=== PATIENT | male | born 1955 | race Caucasian/White ===

== ENCOUNTER 2018-04-16 22:20 | Observation (INO) ==
[2018-04-16 22:50] LABS: Bilirubin,Urine Small (Negative); Blood,Urine Trace (Negative); Clarity,Urine Turbid (Clear); Color,Urine Dark Yellow (Yellow); Glucose,Urine (UA) Normal (Normal); Ketones,Urine Negative (Negative); Leukocyte Esterase,Urine Negative (Negative); Nitrite,Urine Negative (Negative); PH,Urine 5.5 pH Units (5.0-8.0); Protein,Urine 100 mg/dL (Neg-Trace); Specific Gravity,Urine 1.026 (1.010-1.025); Urobilinogen,Urine Normal (Normal)
[2018-04-16 22:53] LABS: Hyaline Casts,Urine Few per lpf (None-Few); RBC,Urine 0-3 per hpf (0-3); Squamous Epithelial Cell,Urine Many per lpf (None-Few); WBC,Urine 15-30 per hpf (0-3)
[2018-04-16 22:59] LABS: Basophils % 0.2 %; Eosinophils % 0.2 %; Hematocrit 37.2 % (37.5-50.1); Immature Granulocytes % 0.2 % (0-4); Lymphocytes # 0.6 K/mcL (0.6-4.6); Lymphocytes % 11.1 %; Mean Corpuscular HGB Conc 34.9 g/dL (31.6-35.5); Mean Corpuscular Hemoglobin 31.6 pg (28.0-33.3); Mean Corpuscular Volume 90.5 fL (83.0-100.0); Mean Platelet Volume 10.2 fL (9.4-12.4); Monocytes # 0.4 K/mcL (0.0-1.3); Monocytes % 7.3 %; Neutrophils # 4.1 K/mcL (1.6-8.9); Platelet Count 132 K/mcL (140-400); Red Blood Count 4.11 M/mcL (4.19-5.50)
[2018-04-16 23:03] LABS: Bacteria,Urine Moderate per hpf (None-Few); Mucus,Urine Moderate (Few); Yeast,Urine Few per hpf (None Seen)
[2018-04-16 23:16] LABS: Albumin 3.8 g/dL (3.5-5.7); Albumin/Globulin Ratio 1.2 (1.1-2.2); Bilirubin,Direct 0.2 mg/dL (0.0-0.2); Bilirubin,Indirect 0.4 mg/dL (0.0-1.2); Bilirubin,Total 0.6 mg/dL (0.3-1.0); Calcium 8.6 mg/dL (8.6-10.3); Globulin 3.1 g/dL (2.4-3.5); Total Protein 6.9 g/dL (6.4-8.9)
[2018-04-16] MEDS ORDERED: 0.9 % Sodium Chloride 1,000 ML IVC ONE (23:34)
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
[2018-04-17] MEDS ORDERED: cefTRIAXone 1,000 MG in Water for inj. (sterile) 20 ML 10 ML IVP ONE (01:53)
[2018-04-17] MEDS ORDERED: 0.9 % Sodium Chloride 1,000 ML IVC ONE (02:05)
[2018-04-17 02:17] LABS: Hepatitis A Antibody IgM Nonreactive (Nonreactive); Hepatitis B Core IgM Nonreactive (Nonreactive); Hepatitis B Surface Antigen Nonreactive (Nonreactive)
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
[2018-04-17] MEDS ORDERED: Naloxone 0.4 MG/ML INJ IVP PRN (03:12)
[2018-04-17] MEDS ORDERED: 0.9 % Sodium Chloride 1,000 ML IVC SCH (03:15)
[2018-04-17] MEDS ORDERED: Acetaminophen 325 MG TABLET PO PRN (03:16)
[2018-04-17] MEDS ORDERED: Ondansetron 4 MG/2 ML VIAL IVP PRN (03:16)
[2018-04-17 03:31] LABS: Magnesium 2.2 mg/dL (1.6-2.6)
[2018-04-17 05:44] LABS: Albumin 3.6 g/dL (3.5-5.7); Albumin/Globulin Ratio 1.2 (1.1-2.2); Bilirubin,Total 0.6 mg/dL (0.3-1.0); Potassium 3.1 mEq/L (3.5-5.1); Total Protein 6.6 g/dL (6.4-8.9)
[2018-04-17] MEDS: 0.9 % Sodium Chloride 1,000 ML IVC SCH ×2 (06:30→21:03)
[2018-04-17] MEDS ORDERED: Acetaminophen 325 MG TABLET PO ONE (06:54)
[2018-04-17] MEDS: Pantoprazole 40 MG VIAL IVP SCH (10:01)
[2018-04-17] MEDS ORDERED: *HR* Promethazine 25 MG/ML VIAL IVP ONE (13:46)
--- NOTE | 2018-04-17 17:10 | Internal Med Progress Note ---
<Ellen Gandhi - Last Filed: 04/17/18 17:18> Date of Encounter: 04/17/18 Time of Encounter: 05:05 - Assessment and plan (1) AMIRA (acute kidney injury) Current Visit: Yes Status: Acute Assessment and plan: Suspected secondary to dehydration. Renally dosing his antibiotics. He was given 2L IVF bolus in ED and is on a maintenance IV hydration. Avoid nephrotoxins. Holding ACEI. Continue monitoring (2) Gastroenteritis Current Visit: Yes Status: Acute Assessment and plan: Ongoing nausea with a few episodes of loose bowel movement. Still has low grade fever. Avoiding acetaminophen due to elevated LFTs. Last bowel movement was 2 days ago. He does have Elevated LFTs, which could be attributed to use of acetaminophen the past 5 days. Negative hepatitis serology, negative lipase and negative alcohol levels. If LFTs are high again, consider ultrasound of the liver. Continue Zofran as needed and PPI ordered. Started cipro and metronidazole. CT of the abdomen shows: No acute intra-abdominal process seen. Mild fatty infiltration liver. Mild hiatal hernia. Status post previous bowel surgery with ventral hernia without bowel obstruction. Nonspecific stranding in the perinephric fat bilaterally. Contracted gallbladder with small calcified gallstone. GI panel stool cultures are still pending. (3) Hyponatremia Current Visit: Yes Status: Acute Assessment and plan: Possibly hypovolemic hyponatremia due to decreased oral intake for the past a few days. He received maintenance IV fluids and now is urged to intake PO. Continue monitoring (4) Hypokalemia Current Visit: Yes Status: Acute Assessment and plan: Potassium was given in the ED and Magnesium level is within normal limits. Could be attributed to decreased dietary intake and loss of potassium due to episodes of diarrhea. Continue monitoring (5) HTN (hypertension) Current Visit: Yes Status: Chronic Assessment and plan: Hold ACEI in the setting of AMIRA and due to hypotension. Qualifiers: Hypertension type: essential hypertension Qualified Code(s): I10 - Essential (primary) hypertension (6) DVT prophylaxis Current Visit: Yes Status: Acute Assessment and plan: EPCDs (7) Elevated LFTs Current Visit: Yes Status: Acute Assessment and plan: Possibly due to acetaminophen intake vs. cholestatic. His decreased in appetite with nausea may suggest a cholestatic cause. If LFTs are still elevated and he continues to have nausea, consider gallbladder ultrasound. His repeat AST and ALT improved. AST improved from 158 to 133, ALT improved from 205 to 187 and Alkaline phos improved from 204 to 191. Will repeat CMP. - Time Spent With Patient Total time spent is greater than 50% in coordination of care (as documented) at patient's floor/unit and/or counseling patient: - Subjective Interval history: Mr. Velazquez was seen at bedside this morning. He presented to the ED per his physician's request due to weakness, fever and associated episodes of diarrhea. He had myalgia onset Friday with subjective fever. On Friday he felt better but Friday and until now his myalgia returned with episodes of fever and two episodes of loose nonbloody bowel movements. He recently returned from a trip at [facility] and had some barbequed pork as well as hamburger. He also started taking acetaminophen the past 5 days for his subjective fevers. He denies photophobia, lower extremity weakness, rash, chest pain or shortness of breath. - Constitutional Vitals: Temp Pulse Resp BP Pulse Ox 99.3 F 72 18 99/66 94 04/17/18 15:40 04/17/18 15:40 04/17/18 15:40 04/17/18 15:40 04/17/18 15:40 General appearance: Present: cooperative, mild distress (appears weak), A&O X 3 , pleasant, answers questions appropriately - Head Head exam: Present: atraumatic, normocephalic - Eye Eye exam: Present: EOMI. Absent: sclera anicteric - ENT ENT exam: Present: mucous membranes moist - Neck Neck exam general surgery: Present: trachea midline. Absent: nuchal rigidity - Respiratory Respiratory exam: Present: CTAB. Absent: rales, wheezes - Cardiovascular Cardiovascular exam: Present: +S1, +S2. Absent: JVD - GI/Abdominal GI/Abdominal exam: Present: normal bowel sounds, soft. Absent: distended, guarding, mass - Extremities Exam Extremities exam: Present: warm. Absent: pedal edema, tenderness - Skin Skin exam: Present: dry, warm. Absent: erythema, rash Internal Medicine: Result - Labs CBC & Chem 7: 04/16/18 22:38 04/17/18 05:12 Labs: BMP 04/17/18 05:12 Sodium 131 L Potassium 3.1 L Chloride 97 L Carbon Dioxide 22 L BUN 38 H Creatinine 2.21 H Glucose 136 H Calcium 8.0 L Liver Function 04/17/18 Range/Units 05:12 Total Bilirubin 0.6 (0.3-1.0) mg/dL AST 133 H (13-39) Units/L ALT 187 H (7-52) Units/L Alkaline Phosphatase 191 H (34-104) Units/L Albumin 3.6 (3.5-5.7) g/dL - Impressions Impressions Chest X-Ray 04/17/18 04:44 IMPRESSION: No acute abnormality. D/ / Jasmeet Prakash MD / Jasmeet Prakash MD Interpreting Provider: Jasmeet Prakash MD Abdomen CT 04/17/18 11:53 IMPRESSION: No acute intra-abdominal process seen. Mild fatty infiltration liver. Mild hiatal hernia. Status post previous bowel surgery with ventral hernia without bowel obstruction. Nonspecific stranding in the perinephric fat bilaterally. Contracted gallbladder with small calcified gallstone. D/ / 04/17/2018 13:18:37 Aaron Banegas MD / jeannette Interpreting Provider: Aaron Banegas MD Consult Discharge Plan - Plan Referrals: Hermilo Taylor DO [Primary Care Provider] - <AlyseoliverjudithConchita Mauromaribel - Last Filed: 04/17/18 18:58> Date of Encounter: 04/17/18 - Assessment and plan (1) Gastroenteritis Current Visit: Yes Status: Acute (2) Hyponatremia Current Visit: Yes Status: Acute (3) Hypokalemia Current Visit: Yes Status: Acute (4) DVT prophylaxis Current Visit: Yes Status: Acute (5) AMIRA (acute kidney injury) Current Visit: Yes Status: Acute (6) HTN (hypertension) Current Visit: Yes Status: Chronic Qualifiers: Hypertension type: essential hypertension Qualified Code(s): I10 - Essential (primary) hypertension (7) Elevated LFTs Current Visit: Yes Status: Acute - Time Spent With Patient Total time spent is greater than 50% in coordination of care (as documented) at patient's floor/unit and/or counseling patient: - Constitutional Vitals: Temp Pulse Resp BP Pulse Ox 99.3 F 72 18 99/66 94 04/17/18 15:40 04/17/18 15:40 04/17/18 15:40 04/17/18 15:40 04/17/18 15:40 Internal Medicine: Result - Labs CBC & Chem 7: 04/16/18 22:38 04/17/18 05:12 Labs: BMP 04/17/18 05:12 Sodium 131 L Potassium 3.1 L Chloride 97 L Carbon Dioxide 22 L BUN 38 H Creatinine 2.21 H Glucose 136 H Calcium 8.0 L Liver Function 04/17/18 Range/Units 05:12 Total Bilirubin 0.6 (0.3-1.0) mg/dL AST 133 H (13-39) Units/L ALT 187 H (7-52) Units/L Alkaline Phosphatase 191 H (34-104) Units/L Albumin 3.6 (3.5-5.7) g/dL - Impressions Impressions Chest X-Ray 04/17/18 04:44 IMPRESSION: No acute abnormality. D/ / Jasmeet Prakash MD / Jasmeet Prakash MD Interpreting Provider: Jasmeet Prakash MD Abdomen CT 04/17/18 11:53 IMPRESSION: No acute intra-abdominal process seen. Mild fatty infiltration liver. Mild hiatal hernia. Status post previous bowel surgery with ventral hernia without bowel obstruction. Nonspecific stranding in the perinephric fat bilaterally. Contracted gallbladder with small calcified gallstone. D/ / 04/17/2018 13:18:37 Aaron Banegas MD / [facility] Interpreting Provider: Aaron Banegas MD - Attending Attestation I examined this patient and my medical decision-making was reviewed with the Resident Physician. I agree with the documented findings, disposition and treatment plan as described except to the extent set forth below.
[2018-04-17] MEDS ORDERED: cefTRIAXone 1,000 MG in Water for inj. (sterile) 20 ML 10 ML IVP SCH (18:00)
[2018-04-17] MEDS: metroNIDAZOLE 500 MG TABLET PO SCH (21:03)
[2018-04-18 05:27] LABS: Basophils % 0.6 %; Eosinophils # 0.1 K/mcL (0.0-0.6); Hematocrit 29.7 % (37.5-50.1); Immature Granulocytes % 0.6 % (0-4); Lymphocytes # 0.9 K/mcL (0.6-4.6); Lymphocytes % 25.1 %; Mean Corpuscular HGB Conc 33.7 g/dL (31.6-35.5); Mean Corpuscular Hemoglobin 30.5 pg (28.0-33.3); Mean Corpuscular Volume 90.5 fL (83.0-100.0); Mean Platelet Volume 10.9 fL (9.4-12.4); Monocytes # 0.4 K/mcL (0.0-1.3); Monocytes % 11.6 %; Neutrophils # 2.1 K/mcL (1.6-8.9); Platelet Count 128 K/mcL (140-400); Red Blood Count 3.28 M/mcL (4.19-5.50); Red Cell Distribution Width 13.4 % (11.5-14.5); Segmented Neutrophils % 60.1 %
[2018-04-18 05:43] LABS: Acetaminophen < 10 mcg/mL (10-20); Alanine Aminotransferase 108 Units/L (7-52); Albumin 2.8 g/dL (3.5-5.7); Albumin/Globulin Ratio 1.1 (1.1-2.2); Alkaline Phosphatase 133 Units/L (34-104); Aspartate Amino Transferase 59 Units/L (13-39); BUN/Creatinine Ratio 20 (6-26); Bilirubin,Total 0.5 mg/dL (0.3-1.0); Blood Urea Nitrogen 28 mg/dL (8-23); Calcium 8.1 mg/dL (8.6-10.3); Carbon Dioxide 23 mEq/L (23-29); Chloride 105 mEq/L (98-107); Globulin 2.5 g/dL (2.4-3.5); Glucose 115 mg/dL (70-105); Osmolality,Calculated 284 (280-300); Potassium 3.4 mEq/L (3.5-5.1); Sodium 134 mEq/L (136-145); Total Protein 5.3 g/dL (6.4-8.9); eGFR For African Americans > 60 (> 60); eGFR For Non-African Americans 53 (> 60)
[2018-04-18 10:42] VITALS: BP 100/64
[2018-04-18] MEDS: Pantoprazole 40 MG VIAL IVP SCH (10:42)
[2018-04-18] MEDS: metroNIDAZOLE 500 MG TABLET PO SCH (10:43)
[2018-04-18] MEDS: 0.9 % Sodium Chloride 1,000 ML IVC SCH (10:53)
--- NOTE | 2018-04-18 12:37 | Discharge Summary ---
- NOTES TO OUTPATIENT PROVIDER Notes to Outpatient Provider: Repeat BMP in 3-5 days. Orders not resulted at time of discharge: Pending orders 04/17/18 05:12 Culture,Blood [BC] Stat 04/17/18 05:25 Culture,Urine [RM] Stat Date of Encounter: 04/18/18 Time of Encounter: 12:35 - Discharge Diagnosis (1) AMIRA (acute kidney injury) Priority: Primary Status: Acute Assessment and Plan: Secondary to dehydration (2) Gastroenteritis Priority: Secondary Status: Acute (3) Hyponatremia Priority: Secondary Status: Acute (4) Hypokalemia Priority: Secondary Status: Acute (5) DVT prophylaxis Priority: Secondary Status: Acute (6) HTN (hypertension) Priority: Secondary Status: Chronic Qualifiers: Hypertension type: essential hypertension Qualified Code(s): I10 - Essential (primary) hypertension (7) Elevated LFTs Priority: Secondary Status: Acute Hospital course: Mr. Velazquez is a 62 year old male with a PMH of HTN who was sent to the ED by his PCPdue to dehydration. Patient reports weakness, subjective fever, ongoing nausea, decreased appetite, and cramping abdominal pain for the past 7 days. He also reports decreased fluid intake for the past 2 days since recent evaluation at urgent care. He reports diarrhea has now resolved since he hasn't been eating. Patient reports one episode of dysuria but hasn't been urinating as frequently as usual. He reports recent travel to [facility] and swimming in a public pool. He admits to drinking about 15 beers weekly usually casually with friends, but denies history of alcohol withdrawal seizures. Patient is able to keep fluids down at this time and reports taking Tylenol as needed for fever. Patient denies chills, vomiting, bug bites, or exposure to sick contacts. In the ED labs were significant for AMIRA with creatinine elevated at 2.3 and sodium of 128. He was given IV fluids and creatinine did show significant improvement. Patient did still have complaints of severe n/v, he was started on Cipro/Flagyl. CT abdomen pelvis showed no acute process. Showed mild fatty liver, and contracted gallbladder with small calcified stones. LFTs were elevated, AST initially 158, ALT 205 and AST 204. He is known to have alcohol consumption and a CT of abdomen/pelvis showed fatty liver. His LFTs did trend down without any intervention. Patient appetite and renal function improved. He was discharged home in stable condition to complete course of Cipro/Flagyl. - Time Spent with Patient Total time spent providing and/or coordinating discharge services: - Discharge Medications Prescriptions: metroNIDAZOLE [Flagyl] 500 mg PO TID #21 tablet Home Medications: Aspirin Enteric Coated [Aspirin EC] 81 mg PO DAILY 04/17/18 [History] Lisinopril-HCTZ 20-12.5 [Prinzide 20-12.5] 1 tab PO DAILY 04/17/18 [History] Ciprofloxacin [Cipro] 500 mg PO BID #14 tablet 04/18/18 [Rx] metroNIDAZOLE [Flagyl] 500 mg PO TID #21 tablet 04/18/18 [Rx] Allergies/Adverse Reactions: 3 Allergy/AdvReac Type Severity Reaction Status Date / Time No Known Allergies Allergy Verified 04/17/18 10:07 Date of admission: 04/17/18 02:07 Primary care physician: Hermilo Taylor Discharging clinician: Bhargav Mendez - Constitutional Vitals: Temp Pulse Resp BP Pulse Ox 97.8 F 59 18 100/64 96 04/18/18 10:38 04/18/18 10:38 04/18/18 10:38 04/18/18 10:38 04/18/18 10:38 General appearance: Present: cooperative, mild distress (appears weak), A&O X 3 , pleasant, answers questions appropriately - Head Head exam: Present: atraumatic, normocephalic - Eye Eye exam: Present: PERRL, conjuntiva pink, sclera anicteric Pupils: Present: PERRL - Neck Neck exam general surgery: Present: supple, trachea midline. Absent: lymphadenopathy - Respiratory Respiratory exam: Present: CTAB. Absent: accessory muscle use, rales, rhonchi, wheezes - Cardiovascular Cardiovascular exam: Present: RRR, +S1, +S2. Absent: diastolic murmur, gallop, rubs, systolic murmur - GI/Abdominal GI/Abdominal exam: Present: normal bowel sounds, soft, no peritoneal signs. Absent: distended, tenderness - Extremities Exam Extremities exam: Present: warm, radial pulses palpable and symmetrical. Absent : calf tenderness, cyanotic, pedal edema - Neurological Exam Neurological exam: Present: CN II-XII intact, oriented X3, no focal deficits. Absent: pronater drift, facial droop, speech deficit - Skin Skin exam: Present: dry, intact - Patient Status Disposition: Home, Self-Care Condition: Good Functional capacity at discharge: independent ambulation Overall status at discharge: patient is back to baseline - Discharge Instructions Follow Up With: Hermilo Taylor DO [Primary Care Provider] - - Diet and Activity Activity: increase activity as tolerated Diet: advance to your usual diet - VTE Documentation of Mechanical Device: Intermittent pneumatic compression device
[2018-04-20 12:38] LABS: Hepatitis C Virus Antibody Nonreactive (Nonreactive)
== END 2018-04-18 18:00 | disposition home or self-care (01) ==
LOC: 3ANU 22:20 → EMEROO 22:20 → 3ANU 04-17 02:52
PROVIDERS: ADMIT Internal Medicine; ATTEND Internal Medicine

== ENCOUNTER 2018-11-15 08:48 | Inpatient (IN) ==
[2018-11-15] MEDS ORDERED: Aspirin 81 MG TAB.CHEW ONE (09:13)
[2018-11-15] MEDS ORDERED: *HR* Heparin 5,000 UNIT/ML VIAL ONE (09:13)
[2018-11-15] MEDS ORDERED: 0.9 % Sodium Chloride 1,000 ML ONE ×3 (09:13→09:41)
[2018-11-15] MEDS ORDERED: *HR* Ticagrelor 90 MG TABLET ONE (09:13)
[2018-11-15] MEDS ORDERED: Aspirin 81 MG TAB.CHEW PO ONE (09:17)
[2018-11-15] MEDS ORDERED: *HR* Ticagrelor 90 MG TABLET PO ONE (09:17)
[2018-11-15] MEDS ORDERED: *HR* Heparin 5,000 UNIT/ML VIAL IVP PRN ×2 (09:18)
[2018-11-15] MEDS ORDERED: *HR* Heparin 5,000 UNIT/ML VIAL IVP ONE (09:18)
--- NOTE | 2018-11-15 09:18 | Emergency Department Note ---
Disposition Clinical Impression: STEMI (ST elevation myocardial infarction) Qualifiers: Involved coronary artery: unspecified coronary artery Qualified Code(s): I21.3 - ST elevation (STEMI) myocardial infarction of unspecified site Disposition: Admitted As Inpatient Condition: Serious Time of Disposition: 10:14 General Adult HPI - General Chief complaint: ED Shortness of Breath/Dyspnea Stated complaint: Lungs Hurt Time Seen by Provider: 11/15/18 08:50 Source: patient, family Limitations: no limitations Nursing Notes Reviewed: Yes Vital Signs Reviewed: Yes - History of Present Illness HPI Narrative: Patient is a 63-year-old male with a history of hypertension who presents to the ED with sensation of his lungs burning. Patient states that last Friday he was working out and had the sensation of his lungs burning continued workup for 20 more minutes would not go away. Afterwards he did a shower and rested he said the sensation white. Had a very similar symptoms on Friday and Friday. However this morning he woke up and stated he had the exact same symptoms. Stated his lungs are burning. Had some radiation to his neck and his jaw. Patient has felt clammy. He has not taken any aspirin or other pain medications. Patient has no personal history of cardiac disease. Does have family history on his father side. Patient denies significant shortness of breath. Denies cough, fever, abdominal pain, nausea, vomiting, diarrhea, swe lling, muscle weakness, tenderness, YU, vision changes. Pain Scale: 8 - Related Data Home Medications Medication Instructions Recorded Confirmed Aspirin Enteric Coated [Aspirin EC] 81 mg PO DAILY 04/17/18 04/17/18 Lisinopril-HCTZ 20-12.5 [Prinzide 1 tab PO DAILY 04/17/18 04/17/18 20-12.5] Previous Rx's Medication Instructions Recorded Ibuprofen 400 mg PO Q6-8H PRN #20 tablet 11/02/18 Loratadine [Claritin] 10 mg PO DAILY #14 tablet 11/02/18 Allergies Allergy/AdvReac Type Severity Reaction Status Date / Time No Known Allergies Allergy Verified 11/02/18 09:03 Constitutional: Reports: as per HPI Eyes: Reports: as per HPI ENT ED: Denies: congestion Cardiovascular: Reports: as per HPI Respiratory: Reports: as per HPI Gastrointestinal: Reports: as per HPI Genitourinary: Reports: as per HPI Integumentary: Denies: rash Neurological: Reports: as per HPI Allergic/Immunologic: Denies: itchy eyes Past Medical History - Past Medical History Medical history: Reports: GERD, hypertension, other Surgical history: Reports: colostomy Psychiatric history: Reports: no psych history - Social History Smoking Status: Never smoker Smokeless Tobacco Status: No Alcohol use: Reports: occasionally Drug use: Reports: none Physical Exam Irregularities pleasant conversation. He was slightly diaphoretic. - General Limitations: no limitations General appearance: alert, in no apparent distress - Head Head exam: atraumatic, normocephalic - Eye Eye exam: Present: normal appearance, PERRL, EOMI - Chest Chest inspection: Present: normal inspection, symmetric chest wall rise - Respiratory Respiratory exam: Present: normal lung sounds bilaterally - Cardiovascular Cardiovascular exam: Present: regular rate, normal rhythm, normal heart sounds - Abdominal Exam Abdominal exam: Present: soft, Non-Tender. Absent: tenderness, distention, guarding, rebound, rigidity - Extremities Exam Extremities exam: Present: normal inspection, full ROM. Absent: tenderness, pedal edema - Neurological Exam Neurological exam: Present: alert, oriented X3 - Psychiatric Psychiatric exam: Present: normal affect, normal mood - Skin Skin exam: Present: warm, dry, intact, normal color Course Vital Signs Temperature 97.7 F 11/15/18 08:50 Pulse Rate 65 11/15/18 08:50 Respiratory Rate 18 11/15/18 08:50 Blood Pressure 180/111 11/15/18 08:50 O2 Sat by Pulse Oximetry 96 11/15/18 08:50 Temperature 97.7 F 11/15/18 08:50 Pulse Rate 69 11/15/18 09:50 Respiratory Rate 14 11/15/18 09:50 Blood Pressure 147/94 11/15/18 09:50 O2 Sat by Pulse Oximetry 100 11/15/18 09:50 Oxygen Delivery Oxygen Delivery Nasal Cannula Medical Decision Making - [facility] Narrative Medical decision making narrative: ST segment elevations in 2,3. aVF with depressions in aVL. STEMI alert was called. Aspirin, nitroglycerin, fluids were given. Inferior SD. The patient was hypertensive. Nitroglycerin was given, hypertensive. fluid bolus was given as well to maintain preload. Dr. odell grab operator was called. will see patient. Likely take patient to catheter lab. Labs, heparin. troponin 0.39 09:58 transfered down to quality lab technician. Will be sent to ICU after procedue. - Lab Data Result diagrams: 11/15/18 09:25 11/15/18 09:25 Lab Results 11/15/18 11/15/18 11/15/18 Range/Units 09:25 09:25 09:25 WBC 4.6 (4.3-11.1) K/mcL RBC 4.30 (4.19-5.50) M/mcL Hgb 13.0 (12.9-16.9) g/dL Hct 39.4 (37.5-50.1) % MCV 91.6 (83.0-100.0) fL MCH 30.2 (28.0-33.3) pg MCHC 33.0 (31.6-35.5) g/dL RDW 13.3 (11.5-14.5) % Plt Count 191 (140-400) K/mcL MPV 10.1 (9.4-12.4) fL Immature Gran % 0.2 (0-4) % Seg Neutrophils % 46.7 % Lymphocytes % 37.6 % Monocytes % 8.5 % Eosinophils % 6.3 % Basophils % 0.7 % Neutrophils # 2.2 (1.6-8.9) K/mcL Lymphocytes # 1.7 (0.6-4.6) K/mcL Monocytes # 0.4 (0.0-1.3) K/mcL Eosinophils # 0.3 (0.0-0.6) K/mcL Basophils # 0.0 (0.0-0.2) K/mcL PT 11.0 (9.4-12.1) Seconds INR 1.0 Heparin Anti-Xa, Unfract 0.00 L (0.30-0.70) IU/mL Sodium 137 (136-145) mEq/L Potassium 3.5 (3.5-5.1) mEq/L Chloride 105 (98-107) mEq/L Carbon Dioxide 23 (23-29) mEq/L BUN 19 (8-23) mg/dL Creatinine 0.87 (0.70-1.30) mg/dL Est GFR ( Amer) > 60 (> 60) Est GFR (Non-Af Amer) > 60 (> 60) BUN/Creatinine Ratio 22 (6-26) Glucose 151 H (70-105) mg/dL Calculated Osmolality 289 (280-300) Calcium 9.8 (8.6-10.3) mg/dL Magnesium 2.0 (1.6-2.6) mg/dL Troponin I 0.39 H* (< 0.04) ng/mL
--- NOTE | 2018-11-15 09:19 | Emergency Department Note ---
Disposition Clinical Impression: STEMI (ST elevation myocardial infarction) Disposition: Admitted As Inpatient Referrals: Hermilo Taylor DO [Primary Care Provider] - General Adult HPI - General Chief complaint: ED Shortness of Breath/Dyspnea Stated complaint: Lungs Hurt Time Seen by Provider: 11/15/18 08:50 Source: patient, family Limitations: no limitations - History of Present Illness Pain Scale: 8 - Related Data Home Medications Medication Instructions Recorded Confirmed Aspirin Enteric Coated [Aspirin EC] 81 mg PO DAILY 04/17/18 04/17/18 Lisinopril-HCTZ 20-12.5 [Prinzide 1 tab PO DAILY 04/17/18 04/17/18 20-12.5] Previous Rx's Medication Instructions Recorded Ibuprofen 400 mg PO Q6-8H PRN #20 tablet 11/02/18 Loratadine [Claritin] 10 mg PO DAILY #14 tablet 11/02/18 Allergies Allergy/AdvReac Type Severity Reaction Status Date / Time No Known Allergies Allergy Verified 11/02/18 09:03 Past Medical History - Past Medical History Medical history: Reports: GERD, hypertension, other Surgical history: Reports: colostomy Psychiatric history: Reports: no psych history - Social History Smoking Status: Never smoker Smokeless Tobacco Status: No Alcohol use: Reports: occasionally Drug use: Reports: none Physical Exam - General Limitations: no limitations General appearance: alert, in no apparent distress Course Vital Signs Temperature 97.7 F 11/15/18 08:50 Pulse Rate 65 11/15/18 08:50 Respiratory Rate 18 11/15/18 08:50 Blood Pressure 180/111 11/15/18 08:50 O2 Sat by Pulse Oximetry 96 11/15/18 08:50 Temperature 97.7 F 11/15/18 08:50 Pulse Rate 65 11/15/18 08:50 Respiratory Rate 18 11/15/18 08:50 Blood Pressure 180/111 11/15/18 08:50 O2 Sat by Pulse Oximetry 98 11/15/18 09:14 Oxygen Delivery Oxygen Delivery Room Air Attestation Statement - Attestation Attestation: I examined this patient and my medical decision-making was reviewed with the Resident Physician. I agree with the documented findings, disposition and treatment plan as described except to the extent set forth below. STEMI ALERT: appaers to be inferior in nature with lateral reciporcations. Patient is 63 year old male presents to the ED with the complaint of sore lungs. Ally states that he was working out on and felt simliarlly but it resovled itself. And this mornign when he wokeup he felt simliar in nature and it is worsening. Ally states that he has hypertension and high cholesterol issues and his father most recently from a triple bypass surgery one week ago. Ally grandfather also from a STEMI. He is otherwise hypertensive now and we will give aspirin and fluids for therapy of the inferior HI.
[2018-11-15] MEDS ORDERED: Nitroglycerin 0.4 MG TAB.SUBL SL ONE (09:21)
[2018-11-15] MEDS ORDERED: Nitroglycerin 0.4 MG TAB.SUBL SL PRN (09:21)
[2018-11-15] MEDS ORDERED: 0.9 % Sodium Chloride 1,000 ML IVC ONE (09:22)
[2018-11-15] MEDS ORDERED: Heparin 25,000 UNIT/500 ML D5W 25,000 UNIT/500 ML BAG IVC SCH (09:30)
[2018-11-15] MEDS ORDERED: ISOVUE-370 200 ML INFUS..BTL ONE (09:40)
[2018-11-15] MEDS ORDERED: Heparin 1,000 UNITS/500 mL 500 ML ONE (09:40)
[2018-11-15] MEDS ORDERED: *HR* Heparin 10,000 UNIT/10 ML VIAL ONE (09:40)
[2018-11-15] MEDS ORDERED: Verapamil 5 MG/2 ML VIAL ONE (09:40)
[2018-11-15] MEDS ORDERED: Nitroglycerin 1,000 MCG/10 ML VIAL IV ONE ×2 (09:41→09:49)
--- NOTE | 2018-11-15 09:43 | Pre-Sedation Evaluation ---
Pre-sedation evaluation - Pre-sedation checklist Date of procedure: 11/15/18 Procedure: [facility] Recent Vitals: Last Vital Signs Temp 97.7 F 11/15/18 08:50 Pulse 51 11/15/18 09:26 Resp 20 11/15/18 09:26 BP 91/69 11/15/18 09:26 Pulse Ox 98 11/15/18 09:26 H&P (including ROS) documented in medical record: Yes Previous reaction to sedatives/anesthetics: No Dietary Status: NPO after Midnight Airway Assessment: Patient can open mouth completely, TMJ function normal Dentition: No loose teeth or bridges ASA Classification *see protocol: CLASS II-Mild systemic disease, [id number] to any of the above to indicate emergent Plan of Care: Pt appropriate candidate for procedure/moderate/conscious sedation, Risks/benefits of procedure/sedation discussed w/ patient/family Cardiac Registry (Cardio Only) - Functional Capacity Functional Capacity: >=4 METS with symptoms - Clincal Frailty Scale Clinical Frailty Scale: Managing Well
--- NOTE | 2018-11-15 09:46 | Cardiology History & Physical ---
Date of Encounter: 11/15/18 Time of Encounter: 09:45 Assessment and Plan (1) STEMI (ST elevation myocardial infarction) Current Visit: Yes Status: Acute The assessment and plan as outlined above was discussed with the patient and/or family members who expressed understanding and agreement. All questions were answered. Qualifiers: Involved coronary artery: unspecified coronary artery Qualified Code(s): I21.3 - ST elevation (STEMI) myocardial infarction of unspecified site History of Present Illness Chief complaint: chest pain HPI: Mr. Velazquez is a 63 year old male with no previous cardiac history, HTN. He presents with chest pain. Past Med Surg Social Fam HX - Past Medical History Medical history: GERD, hypertension, other Additional medical history: gallstones Psychiatric history: no psych history - Past Surgical History Surgical History: colostomy Additional surgical history: abd sx - Social History Smoking Status: Never smoker Smokeless Tobacco Status: No Alcohol use: occasionally Drug use: none - Family History Mother Living Status: Still Living Father Living Status: Still Living Hx Family Cardiac Disorders: Yes Medications and Allergies Aspirin Enteric Coated [Aspirin EC] 81 mg PO DAILY 04/17/18 [History] Lisinopril-HCTZ 20-12.5 [Prinzide 20-12.5] 1 tab PO DAILY 04/17/18 [History] Ibuprofen 400 mg PO Q6-8H PRN #20 tablet 11/02/18 [Rx] Loratadine [Claritin] 10 mg PO DAILY #14 tablet 11/02/18 [Rx] Allergy/AdvReac Type Severity Reaction Status Date / Time No Known Allergies Allergy Verified 11/02/18 09:03 All Systems Review: The remainder of the systems were reviewed and are negative Physical Examination Vital Signs, Last 4 Hours Temp Pulse Resp BP Pulse Ox 11/15/18 09:26 51 20 91/69 98 11/15/18 09:17 98 11/15/18 09:14 98 11/15/18 08:50 97.7 F 65 18 180/111 96
[2018-11-15 09:47] LABS: Basophils % 0.7 %; Eosinophils # 0.3 K/mcL (0.0-0.6); Eosinophils % 6.3 %; Hematocrit 39.4 % (37.5-50.1); Immature Granulocytes % 0.2 % (0-4); Lymphocytes # 1.7 K/mcL (0.6-4.6); Lymphocytes % 37.6 %; Mean Corpuscular Hemoglobin 30.2 pg (28.0-33.3); Mean Corpuscular Volume 91.6 fL (83.0-100.0); Mean Platelet Volume 10.1 fL (9.4-12.4); Monocytes # 0.4 K/mcL (0.0-1.3); Monocytes % 8.5 %; Neutrophils # 2.2 K/mcL (1.6-8.9); Platelet Count 191 K/mcL (140-400); Red Cell Distribution Width 13.3 % (11.5-14.5); Segmented Neutrophils % 46.7 %
[2018-11-15] MEDS ORDERED: Tirofiban 12.5 MG/250ML 12.5 MG/250 ML BAG ONE (10:08)
[2018-11-15] MEDS ORDERED: *HR* Atropine Sulfate 1 MG/10 ML SYRINGE ONE (10:08)
[2018-11-15 10:09] LABS: BUN/Creatinine Ratio 22 (6-26); Blood Urea Nitrogen 19 mg/dL (8-23); Calcium 9.8 mg/dL (8.6-10.3); Carbon Dioxide 23 mEq/L (23-29); Chloride 105 mEq/L (98-107); Glucose 151 mg/dL (70-105); Osmolality,Calculated 289 (280-300); Potassium 3.5 mEq/L (3.5-5.1); Sodium 137 mEq/L (136-145); eGFR For Non-African Americans > 60 (> 60)
[2018-11-15] MEDS ORDERED: Ondansetron 4 MG/2 ML VIAL ONE (10:09)
[2018-11-15] MEDS ORDERED: *HR* FentaNYL (PF) 100 MCG/2 ML VIAL ONE (10:10)
[2018-11-15] MEDS ORDERED: *HR* Midazolam HCl 2 MG/2 ML VIAL ONE (10:10)
[2018-11-15 10:11] LABS: Troponin I 0.39 ng/mL (< 0.04)
[2018-11-15] MEDS ORDERED: *HR* Morphine 2 MG/ML SYRINGE IVP PRN (11:10)
[2018-11-15] MEDS ORDERED: Ondansetron 4 MG/2 ML VIAL IVP PRN (11:10)
[2018-11-15] MEDS ORDERED: Tirofiban 12.5 MG/250ML 12.5 MG/250 ML BAG IVC SCH (11:15)
--- NOTE | 2018-11-15 12:03 | Invasive Diagnostic Lab Proc ---
Name: Chito Velazquez Date of Study: 11/15/2018 Date: 1955 Ht: 68.9in Medical Record#: [id number] Age: 63 Wt: 267.86lb Gender: Male BSA: 2.34 Order #: [id number] BMI: 39.67 Physicians Procedure Physician: Brandon Corcoran [facility], [facility] Referring MD: Referring MD: Staff Name Position Time In Ramon Hobbs RN Monitor 10:05 AM Eli Rosado RN Printing Machine Operator Tape Rules 10:05 AM Gabriela Barrow RT (R) Scrub 10:05 AM Indications Indication STEMI Procedures Performed Procedure L HRT ARTERY/VENTRICLE ANGIO PRQ CARD REVASC MT 1 VSL Pre-Procedure Checklist Informed consent is complete signed and on chart. H&P is on chart. ID band is on and ID verified with patient. Patient NPO for procedure The procedure was described for the patient and questions were answered. Blood Pressure: 150/76 ECG is on chart. Rhythm: NSR Plan of Care Patient will tolerate the procedure without complications. Adequate level of comfort will be maintained. Hemodynamics will remain stable Patient will recover from procedure without complications. Respiratory function will be maintained. Cardiac rhythm will remain stable. Patient temperature will be maintained. Patient and/or family have verbalized understanding of the procedure. Patient Education Chief Complaint/Reason for Test: Cardiac Cath Developmental Category: Adult (18-64 years) Developmentally Appropriate for Age: Yes Learning Barriers: None Education Needs: Procedure Education Method: Verbal Information Taught: Cardiac Cath Educational Evaluation: Able to repeat information Intravenous Access Time IV Size Location DC'd Fluid/Drip Rate Units RN 20g 1 1/4" Patent On Arrival Rt Antecubital Eli Rosado RN 20g 1 1/4" Patent On Arrival Lt Hand 0.9NaCl 50 ml/hr Eli Rosado RN Allergies No Known Allergies Vital Signs Time BP (mmHg) HR (bpm) O2 Sat. RR (bpm) LOC 10:06 AM / % 5 = Fully awake and oriented or at pre-proc level 10:06 AM / % 4 = Oriented but drowsy 10:21 AM / % 4 = Oriented but drowsy 10:36 AM / % 4 = Oriented but drowsy 10:43 AM 143 / 92 69 100 % 0 10:49 AM 146 / 88 71 100 % 0 10:53 AM 143 / 96 77 100 % 10 10:58 AM 133 / 65 61 100 % 6 10:09 AM 162 / 93 56 100 % 15 10:13 AM 164 / 100 66 100 % 9 10:18 AM 142 / 88 61 97 % 19 10:23 AM 150 / 87 69 99 % 19 10:28 AM 148 / 82 69 100 % 14 10:33 AM 135 / 77 62 100 % 10:38 AM 130 / 93 77 100 % 29 11:20 AM 129 / 75 60 99 % 11:30 AM 109 / 93 60 98 % 16 5 = Fully awake and oriented or at pre-proc level 11:48 AM 124 / 82 61 98 % 16 5 = Fully awake and oriented or at pre-proc level Procedural Medications Time Medication Dose Units Method Given By 10:05 AM Oxygen 2 L/min nasal cannula Eli Rosado RN 10:11 AM Versed 2 mg Intravenous Eli Rosado RN 10:11 AM Fentanyl 50 mcg Intravenous Eli Rosado RN 10:11 AM Lidocaine 2% 2 ml Subcutaneous Brandon Corcoran MD, FAC Nitroglycerin 200 mcg Verapamil 2.5 mg Intraarterial Brandon Corcoran MD, FACC 10:16 AM Lidocaine 2% 9 ml Subcutaneous Brandon Corcoran MD, FACC 10:17 AM Zofran 8 mg Intravenous Eli Rosado RN 10:27 AM Aggrastat Bolus: 62 ml Intravenous Eli Rosado RN 10:27 AM Aggrastat 12.5mg/250ml 22.5 ml/hr Intravenous Eli Rosado RN 10:38 AM Benadryl 25 mg Intravenous Eli Rosado RN ASA Classification: Emergent Procedure: ASA score is assumed Landon Score Preprocedure Postprocedure Activity 2- Moves 4 extremities sustained head lift Activity 2- Moves 4 extremities sustained head lift Circulation 2- SBP +/= 20 points of pre-anesthetic level Circulation 2- SBP +/= 20 points of pre-anesthetic level Consciousness 2- Awake and alert oriented x 3 Consciousness 2- Awake and alert oriented x 3 O2 Saturation 2- Able to maintain O2 satruation of 92% on room air O2 Saturation 2- Able to maintain O2 satruation of 92% on room air Respiratory 2- Able to deep breathe and cough well Respiratory 2- Able to deep breathe and cough well Total Score 10 Total Score 10 Contrast Agent: Isovue Diagnostic Contrast: 105 ml Total Contrast: 105 ml Fluoro Dose: 6975 mGy Activated Clotting Time Time Seconds to Clot 10:51 AM 197 Procedure Log Time Note Enter By 10:05 AM 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 10:05 AM Physician arrived 10: [facility] 10:05 AM Meet and greet completed [facility] 10:05 AM Sign in performed according to hospital policy. Informed consent was obtained. [facility] 10:05 AM Procedure start 10:05 [facility] 10:05 AM Hair removed from procedure site in procedure lab using clippers. Right groin/right wrist prepped with Chloraprep by Gabriela Barrow (R), then patient was draped. Skin intact. [facility] 10: AM Time: 10:05 Oxygen on at 2 L/min per nasal cannula by Eli Rosado RN [facility] 10: AM Time: 10:06 Patient comfortable and pain free: Yes [facility] 10: AM Time: 10:06LOC: 5 = Fully awake and oriented or at pre-proc level [facility] 10:06 AM CathStat 10:07 AM Vitals capture started with the following parameters, Patient=Adult, Interval=5 min, Initial Jedceree=713 mmHg, Deflation Rate=5 mmHg, Cuff placed on Right Arm 10:09 AM HR=56 bpm, EDPW=192/93 mmhg, XmP3=262.0 %, Resp=15 B/min, Comment=sb 10:09 AM Time out was performed according to hospital policy. Conscious sedation and anesthesia was achieved (see medication log with in this report above) [facility] 10:10 AM Critical cardiac patient with acute MT was brought emergently to the cardiac director of labor relations for immediate coronary angiography and intervention if clinically indicated. [facility] 10: AM Time: : Versed 2 mg Intravenous Given by [facility]ado [facility] 10:11 AM Time: 10: Fentanyl 50 mcg Intravenous Given by Eli Rosado RN [facility] 10:11 AM Time: 10: 2 ml Lidocaine 2% to right radial Subcutaneous Given by Brandon Corcoran MD, [facility] jcallihan 10:13 AM Access obtained by percutaneous puncture. 6Fr 11cm Terumo Glidesheath sheath placed in right Radial artery. [id number] jcallihan 10:13 AM HR=66 bpm, DPVF=665/100 mmhg, FdZ8=787.0 %, Resp=9 B/min, Comment=nsr 10:14 AM Time: 10:14 Patient given 200 mcg Nitroglycerin, and 2.5 mg Verapamil Intraarterial by Brandon Corcoran MD, [facility]. This is given to reduce risk of vessel spasm and thrombosis. jcallihan 10:15 AM 0.035 145cm VSI Geovany-Torque wire [id number] jcallihan 10:15 AM Inflation device was opened. jcallihan 10:15 AM 6Fr JR 4 Cordis guide catheter was used to cannulate the PCI vessel successfully. reused? No jcallihan 10:15 AM Guide catheter removed intact. jcallihan 10:16 AM Wire removed jcallihan 10:16 AM Access being attempted on right groin, unable to go through irhgt radial artery jcallihan 10:16 AM Time: 10:16 9 ml Lidocaine 2% to right groin Subcutaneous Given by Brandon Corcoran MD, [facility] jcallihan 10:17 AM Time: 10:17 Zofran 8 mg Intravenous Given by Eli Rosado RN jcallihan 10:18 AM Access obtained by percutaneous puncture. 6Fr 10cm Terumo Yale sheath placed in right Femoral artery. [id number] jcallihan 10:18 AM HR=61 bpm, BBFT=793/88 mmhg, SpO2=97.0 %, Resp=19 B/min, Comment=nsr 10:18 AM JR4 guide re-inserted. jcallihan 10:18 AM 0.035 145cm Navilyst 3mmJ wire [id number] jcallihan 10:19 AM Recorded Pressure: Ao, HR=62, Condition=Condition 1 (Aorta) Ao 131/74/99 10:19 AM RCA angiography performed in multiple views. jcallihan 10:20 AM .014 Navesink 190cm guide wire across target lesion- successful. reused? No jcallihan 10:20 AM 2.25 mm x 15 mm Emerge Monorail balloon across target lesion- successful. reused? No jcallihan 10:21 AM Lesion found in Distal RCA. Pre Stenosis: 100 Pre FREDRICK Flow: 0: No Flow/No perfusion jcallihan 10:21 AM Time: 10:06 Patient comfortable and pain free: Yes jcallihan 10:21 AM Right Coronary, Right Posterior Descending Arteries with Right Posterolateral and Acute Marginal branches with 100 % stenosis. If graft is supplying this area, 0 % stenosis jcallihan 10:21 AM Time: 10:06LOC: 4 = Oriented but drowsy j[facility]ihan 10:23 AM Recorded Pressure: Ao, HR=66, Condition=Condition 1 (Aorta) Ao 120/73/95 10:23 AM HR=69 bpm, FCKS=587/87 mmhg, SpO2=99.0 %, Resp=19 B/min, Comment=nsr 10:24 AM Balloon inflated @ 14 jud for 13 seconds jcallihan 10:24 AM Balloon inflated @ 14 jud for 10 seconds jcallihan 10: AM Balloon catheter removed intact. jcallihan 10:26 AM PCI Status Emergency jcallihan 10:27 AM Time: 10:27 Aggrastat Bolus: 62 ml Intravenous Given by Eli Rosado RN Louise pump jcallihan 10:27 AM Time: 10:27 Aggrastat 12.5mg/250ml 22.5 ml/hr Intravenous Given by Eli Rosado RN Louise pump jcallihan 10:28 AM HR=69 bpm, XNCG=741/82 mmhg, OkW9=993.0 %, Resp=14 B/min, Comment=nsr 10:29 AM 3.5mm x 20mm Synergy drug-eluting stent across target lesion- successful Lot #[id number] jcallihan 10:31 AM .014 PT Graphix 182cm guide wire across target lesion- successful. reused? No jcallihan 10:33 AM HR=62 bpm, YKXJ=297/77 mmhg, EqC9=912.0 %, Comment=nsr 10:34 AM Stent deployed @ 16 jud for 20 seconds jcallihan 10:34 AM Stent delivery system removed intact. jcallihan 10:36 AM Time: 10:21LOC: 4 = Oriented but drowsy jcallihan 10:36 AM Time: 10:21 Patient comfortable and pain free: Yes jcallihan 10:37 AM 4.5 mm x 8mm NC Trek Rx balloon across target lesion- successful. reused? No jcallihan 10:37 AM Recorded Pressure: Ao, HR=73, Condition=Condition 1 (Aorta) Ao 120/80/102 10:38 AM HR=77 bpm, QHJM=498/93 mmhg, HjB1=678.0 %, Resp=29 B/min, Comment=nsr 10:39 AM Time: 10:38 Benadryl 25 mg Intravenous Given by Eli Rosado RN [facility] 10:40 AM .014 Prowater 180cm guide wire across target lesion- successful. reused? No (second wire) jcallihan 10:42 AM Balloon inflated @ 12 jud for 10 seconds jcallihan 10:43 AM Balloon inflated @ 10 jud for 5 seconds jcallihan 10:43 AM HR=69 bpm, RKAG=688/92 mmhg, VbZ9=856.0 %, Resp=0 B/min, Comment=nsr 10:43 AM Balloon inflated @ 12 jud for 6 seconds jcallan 10:44 AM Balloon catheter removed intact. jcallihan 10:44 AM Lesion found in Proximal RCA. Pre Stenosis: 40 Pre FREDRICK Flow: jcallihan 10:44 AM Lesion found in Mid RCA. Pre Stenosis: 50 Pre FREDRICK Flow: jcallihan 10:45 AM Guide wire removed intact x 2 jcallihan 10:46 AM 5Fr Pigtail catheter inserted over the wire [facility] jcallihan 10:46 AM Catheter crossed the aortic valve and was selectively placed in the left ventricle. Pressures recorded on pullback for left heart catheterization. jcallihan 10:47 AM Bolus angiogram of left Ventricle complete: 10 ml/sec for a total of 30 mls jcallihan 10:47 AM Recorded Pressure: LV, HR=73, Condition=Condition 1 (Left Ventricle) LV 132/7/14 10:48 AM Recorded Pressure: LV, Ao, HR=76, Condition=Condition 1 (Left Ventricle) LV 112/0/13, (Aorta) Ao 137/72/99 10:48 AM Catheter removed jcallihan 10:48 AM 5Fr FL 4 catheter inserted over the wire DNC jcallihan 10:49 AM HR=71 bpm, SDLZ=308/88 mmhg, VcI6=000.0 %, Resp=0 B/min, Comment=nsr 10:50 AM Recorded Pressure: Ao, HR=74, Condition=Condition 1 (Aorta) Ao 128/73/97 10:50 AM LCA angiography performed in multiple views. jcallihan 10:51 AM At 10:51 the ACT was 197 seconds. jcallihan 10:51 AM Time: 10:36 Patient comfortable and pain free: Yes jcallihan 10:51 AM Time: 10:36LOC: 4 = Oriented but drowsy jcallihan 10:52 AM right groin shot obtained. jcallihan 10:53 AM Catheter removed jcallihan 10:53 AM Wire removed jcallihan 10:53 AM HR=77 bpm, BOVT=371/96 mmhg, UsW1=542.0 %, Resp=10 B/min, Comment=nsr 10:54 AM Procedure completed at 10:54 11/15/2018 jcallihan 10:55 AM Did you address FREDRICK flow and Dominance? Yes jcallihan 10:55 AM Coronary Dominance: right jcallihan 10:55 AM Sign out completed: Radiation Dose 910.15 mGy, 6974.88 cGy/cm2 Fluoro Time: 12.2 Isovue 370 - 200ml contrast 105 ml given by Brandon Corcoran MD, [facility]. Complications: None. The patient was discharged out of the director of labor relations in stable condition. Cardiac Rehab Consult needed: YesConfirmed administered medications: Yes jcallihan 10:55 AM Isovue 370 - 200ml,1 Bottle(s) used. jcallihan 10:55 AM Sheath left in place to be pulled on floor/holding areaV+Pad jcallihan 10:56 AM Estimated Blood Loss: minimal jcallihan 10:56 AM Post ECG NSR jcallihan 10:56 AM Post Blood Pressure 143/96 jcallihan 10:56 AM 10:56 Post Pulses Bilateral DP & PT 2+ jcallihan 10:56 AM 10:56 Post Pulses Bilateral radial 2+ jcallihan 10:57 AM Information taught Cardiac Cath and PCI [facility] 10:58 AM HR=61 bpm, YRJP=714/65 mmhg, MeR1=172.0 %, Resp=6 B/min, Comment=nsr 11:05 AM Education needs Procedure, Plan of Care, and Responsibilities of Patient in Care [facility] 11:05 AM Learning barriers :None [facility] 11:07 AM Education Methods Verbal [facility] 11:07 AM Education evaluation Able to repeat information [facility] 11:09 AM Site status No bleeding/hematoma - Rt Groin as reported by Sites, Gabriela RT (R) at 11:08 [facility] 11:09 AM Opsite applied [facility] 11:10 AM Plavix, Effient or Brilinta given Yes [facility] 11:10 AM Family placed in consult room. [facility] 11:10 AM Complications: None [facility] 11:19 AM Patient out of room: 11:19 [facility] 11:23 AM Lesion found in Mid LAD. Pre Stenosis: 50 Pre FREDRICK Flow: jcallan 11:23 AM Lesion found in Mid Circumflex. Pre Stenosis: 60 Pre FREDRICK Flow: allan 11:23 AM Lesion found in 1st Marginal. Pre Stenosis: 50 Pre FREDRICK [facility]: [facility] 11:23 AM Mid/Distal Left Anterior Descending Coronary Artery and diagonal branches with 50% stenosis. If graft is supplying this area, 0 % stenosis [facility] 11:23 AM Circumflex, Obtuse Marginal, Left Posterior Descending, and Left Posterolateral Coronary Arteries with 60 % stenosis. If graft is supplying this area, 0 % stenosis [facility] 11:29 AM pt in holding room d/t no beds available. tsites 11:30 AM bleeding and hematoma around the sheath . called Dr. Corcoran ordered to pull sheath . fem stop put in place. tsites 11:30 AM Arterial sheath pulled using manual compression and V+ Pad for 10 minutes by Ramon Hobbs RN tsites 11:45 AM Report given to chandu GUERRA Pt taken to ICU Room #3. 11:45 tsites 11:46 AM Delay to floor Bed availability tsites 11:48 AM patient taken to ICU 3 tsites Complications Complication None None Hemodynamics Pressures Site Systolic/A Wave Diastolic/V Wave Mean AO 131 74 99 AO 120 73 95 AO 120 80 102 LV 132 7 14 LV 112 0 13 AO 137 72 99 AO 128 73 97 Post Procedure Information Blood Pressure: 143/96 mmHg Rhythm: NSR Post procedural instructions were given Closure Device Time Device Success/Fail Manual Compression Successful Site Checks Time Location Status Staff Sheath In? Note 11:08 AM Rt Groin No bleeding/hematoma Sites, Gabriela RT (R) Pulses Time Site Pre-Procedure Post-Procedure Note Bilateral DP 2+ Bilateral radial 2+ 10:56:00 AM Bilateral DP & PT 2+ 10:56:00 AM Bilateral radial 2+ 11/15/2018 11:37:00 AM Updated by Ramon Hobbs RN on 11/15/2018 11:51:07 AM electronically signed on 11/15/2018 11:52:15 AM with status of Final
[2018-11-15] MEDS: *HR* Ticagrelor 90 MG TABLET PO SCH (21:22)
[2018-11-16 03:41] LABS: Basophils % 0.5 %; Eosinophils # 0.1 K/mcL (0.0-0.6); Eosinophils % 2.2 %; Hematocrit 36.8 % (37.5-50.1); Hemoglobin 12.2 g/dL (12.9-16.9); Immature Granulocytes % 0.2 % (0-4); Lymphocytes # 1.5 K/mcL (0.6-4.6); Lymphocytes % 23.7 %; Mean Corpuscular HGB Conc 33.2 g/dL (31.6-35.5); Mean Corpuscular Hemoglobin 30.3 pg (28.0-33.3); Mean Corpuscular Volume 91.5 fL (83.0-100.0); Mean Platelet Volume 10.1 fL (9.4-12.4); Monocytes # 0.6 K/mcL (0.0-1.3); Monocytes % 10.1 %; Platelet Count 154 K/mcL (140-400); Red Blood Count 4.02 M/mcL (4.19-5.50); Red Cell Distribution Width 13.3 % (11.5-14.5); Segmented Neutrophils % 63.3 %
[2018-11-16 04:01] LABS: BUN/Creatinine Ratio 16 (6-26); Blood Urea Nitrogen 14 mg/dL (8-23); Calcium 8.9 mg/dL (8.6-10.3); Carbon Dioxide 24 mEq/L (23-29); Chloride 106 mEq/L (98-107); Glucose 121 mg/dL (70-105); Osmolality,Calculated 284 (280-300); Potassium 3.8 mEq/L (3.5-5.1); Sodium 136 mEq/L (136-145); eGFR For Non-African Americans > 60 (> 60)
[2018-11-16] MEDS ORDERED: *HR* Enoxaparin 40 MG/0.4 ML SYRINGE SQ SCH (06:00)
[2018-11-16] MEDS: *HR* Ticagrelor 90 MG TABLET PO SCH ×2 (08:34→20:07)
[2018-11-16] MEDS ORDERED: Aspirin 81 MG TAB.CHEW PO SCH (09:00)
[2018-11-16] MEDS ORDERED: Loratadine 10 MG TABLET PO SCH (09:00)
[2018-11-16] MEDS ORDERED: Lisinopril-HCTZ 20-12.5mg TABLET PO SCH (09:00)
--- NOTE | 2018-11-16 10:24 | Cardiology Progress Note ---
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 [facility] with severe 1 vessel CAD. EF 50%. Successful PTCA/LIMA to dRCA--culprit for STEMI. Tortuous/severely stenotic right subclavian artery. Denies chest pain or dyspnea this AM. No events on tele. Labs and vitals stable. TTE EF 55%. Basal inferior wall hypokinetic. Mild LVDD. No phtn. DAPT (ASA and Brilinta) uninterrupted x 1 year. Pt verbalizes understanding. Continue Statin, ACEi. Add low dose BB. Cardiac rehab ordered. Right femoral access site healing well. No bleeding or hematoma. Mild ecchymosis. Restrictions discussed. On Lovenox for DVT prophylaxis. Step down today. Qualifiers: Involved coronary artery: unspecified coronary artery Qualified Code(s): I21.3 - ST elevation (STEMI) myocardial infarction of unspecified site (2) CAD (coronary artery disease) Current Visit: Yes Status: Acute As above, s/p PTCA/LIMA to dRCA. ASA, Brilinta, Statin, ACEi. Start low dose BB. Qualifiers: Coronary Disease-Associated Artery/Lesion type: [place] artery [place] vs. transplanted heart: [place] heart Associated angina: angina presence unspecified Qualified Code(s): I25.10 - Atherosclerotic heart disease of [place] coronary artery without angina pectoris (3) HTN (hypertension) Current Visit: Yes Status: Chronic Well controlled on current meds. Qualifiers: Hypertension type: essential hypertension Qualified Code(s): I10 - Essential (primary) hypertension Discussion w patient/family: The assessment and plan as outlined above was discussed with the patient and/or family members who expressed understanding and agreement. All questions were answered. Thank you for involving us in the care of your patient. Please call with any questions. Subjective Principal diagnosis: STEMI Interval history: Pt denies chest/jaw discomfort this AM. Reports symptoms initially started last Friday, described as exertional chest burning radiating to neck and jaws. Objective Vital Signs, Last 4 Hours Temp Pulse Resp BP Pulse Ox 11/16/18 09:00 69 16 122/69 97 11/16/18 08:44 97.4 F L 11/16/18 08:00 62 16 114/81 96 11/16/18 07:00 66 16 103/63 97 Vital Signs Temp Pulse Resp BP Pulse Ox 11/16/18 10:00 74 16 104/73 98 11/16/18 09:00 69 16 122/69 97 11/16/18 08:44 97.4 F L 11/16/18 08:00 62 16 114/81 96 11/16/18 07:00 66 16 103/63 97 11/16/18 06:00 57 18 107/64 95 11/16/18 05:00 57 18 123/81 95 11/16/18 04:00 98.1 F 11/16/18 03:55 57 11/16/18 03:00 57 12 137/45 95 11/16/18 02:00 60 16 123/79 99 11/16/18 01:00 60 16 124/79 99 11/16/18 00:00 98.1 F 60 16 126/80 99 11/15/18 23:00 61 18 131/81 98 11/15/18 22:00 68 18 137/78 97 11/15/18 21:00 70 18 151/90 98 11/15/18 20:00 97.7 F 70 11/15/18 19:00 71 20 140/78 98 11/15/18 18:00 67 20 139/76 11/15/18 17:00 63 20 134/76 11/15/18 16:23 56 11/15/18 16:09 97.6 F 11/15/18 15:34 97.7 F 57 20 134/86 99 11/15/18 15:30 59 20 127/73 99 11/15/18 15:15 55 20 134/86 98 11/15/18 15:00 67 20 127/81 100 11/15/18 14:45 59 20 130/84 99 11/15/18 14:30 57 20 131/81 100 11/15/18 14:15 55 20 131/83 100 11/15/18 14:00 55 20 136/88 100 11/15/18 13:45 55 20 129/79 11/15/18 13:04 56 20 122/88 99 11/15/18 12:49 58 20 137/86 100 11/15/18 12:34 59 20 129/83 99 11/15/18 12:19 60 20 123/84 99 11/15/18 12:04 59 20 134/81 99 11/15/18 11:13 97.8 F 58 20 125/94 99 Intake and Output 11/15/18 11/16/18 11/16/18 23:59 07:59 15:59 Intake Total 800 / 800 240 / 240 Output Total 1150 / 1150 850 / 850 350 / 350 Balance -1150 / -1150 -50 / -50 -110 / -110 Intake: Oral 800 / 800 240 / 240 Output: Urine 1150 / 1150 850 / 850 350 / 350 Other: Meal Breakfast Percent of Meal Consumed 75% Weight 102.5 kg Patient Weight 11/16/18 23:59 Weight 102.5 kg General: Conversant, No Apparent Distress HEENT: Atraumatic, Normocephaly, Mucus Membranes Moist Neck: No JVD, Normal carotid pulses Cardiac: Reg Rate and Rhythm, Normal S1 and S2, No Murmur Lungs: Normal Breath Sounds, No Wheeze, Rales, Rhonchi Neuro: Alert and responsive, No focal deficits noted Abdomen: Soft, Non-Tender Skin: No rashes noted on visualized skin Musculoskeletal: No Chest Wall Tenderness Extremities: No Clubbing, No Cyanosis, No Edema, Normal Pulses Results 11/16/18 03:24 11/16/18 03:24 Lab Results 11/16/18 11/16/18 03:24 03:24 WBC 6.3 Hgb 12.2 L Hct 36.8 L Plt Count 154 Sodium 136 Potassium 3.8 Chloride 106 Carbon Dioxide 24 BUN 14 Creatinine 0.89 Glucose 121 H Calcium 8.9 Short CBC 11/16/18 Range/Units 03:24 WBC 6.3 (4.3-11.1) K/mcL Hgb 12.2 L (12.9-16.9) g/dL Hct 36.8 L (37.5-50.1) % Plt Count 154 (140-400) K/mcL Neutrophils # 4.0 (1.6-8.9) K/mcL BMP 11/16/18 Range/Units 03:24 Sodium 136 (136-145) mEq/L Potassium 3.8 (3.5-5.1) mEq/L Chloride 106 (98-107) mEq/L Carbon Dioxide 24 (23-29) mEq/L BUN 14 (8-23) mg/dL Creatinine 0.89 (0.70-1.30) mg/dL Glucose 121 H (70-105) mg/dL Calcium 8.9 (8.6-10.3) mg/dL Impressions Echocardiogram 11/15/18 11:10 Impressions: LVEF 55%. Normal LV chamber size, wall thickness and overall function. Mild segmental left ventricular systolic dysfunction. Mild left ventricular diastolic dysfunction. Normal right ventricular structure and function. No evidence of pulmonary hypertension. No significant valvular dysfunction. Left Ventricular Wall Motion: Rest Echo Findings The basal inferior wall was hypokinetic. All other wall segments showed normal motion. Findings: Study Quality * Technically adequate exam. ECG Findings * Sinus bradycardia. Left Ventricle * LVEF 55%. * Normal LV chamber size, wall thickness and overall function. * Mild segmental left ventricular systolic dysfunction. * Mild left ventricular diastolic dysfunction. Right Ventricle * Normal right ventricular structure and function. Left Atrium * Mildly dilated left atrium. Right Atrium * Normal right atrial size. Aortic Valve * Trileaflet aortic valve. * Mildly sclerotic aortic valve leaflets. * Trace aortic regurgitation. * No aortic stenosis. Mitral Valve * Mild mitral annular calcification * No mitral stenosis. * No mitral regurgitation. Tricuspid Valve * Normal tricuspid valve structure and function. * Trace tricuspid regurgitation. * No evidence of pulmonary hypertension. Pulmonic Valve * Pulmonic valve not well visualized. * No pulmonic regurgitation. Aorta * Normally sized aortic root. Pericardium * The pericardium appears normal. IVC * Normal IVC dimensions and inspiratory collapse. Pulmonary Artery * Pulmonary artery not well visualized. Active Medications Acetaminophen (Tylenol) 500 mg PO Q6HR PRN PRN Reason: Mild Pain Stop: 05/17/19 11:11 Last Admin: 11/15/18 14:35 Dose: 500 mg Aspirin (Aspirin) 81 mg PO DAILY [facility]I Stop: 05/18/19 09:01 Last Admin: 11/16/18 08:35 Dose: 81 mg Diphenhydramine HCl (Benadryl) 25 mg PO HS PRN PRN Reason: Insomnia Stop: 05/17/19 13:26 Enoxaparin Sodium (Lovenox) 40 mg SQ 0600 MERI; Protocol Stop: 05/18/19 06:01 Last Admin: 11/16/18 05:19 Dose: 40 mg Lisinopril/HCTZ (Prinzide 20-12.5) 1 each PO DAILY [facility] Stop: 05/18/19 09:01 Last Admin: 11/16/18 08:34 Dose: 1 each Hydralazine HCl (Hydralazine) 10 mg IVP Q6HR PRN PRN Reason: Hypertension Stop: 05/17/19 13:26 Loratadine (Claritin) 10 mg PO DAILY [facility]; Protocol Stop: 05/18/19 09:01 Last Admin: 11/16/18 08:34 Dose: 10 mg Morphine Sulfate (Morphine Sulfate) 4 mg IVP Q3H PRN PRN Reason: Severe Pain (7-10) Stop: 05/17/19 11:11 Nitroglycerin (Nitroglycerin) 0.4 mg SL Q5MIN PRN PRN Reason: Chest Pain Stop: 05/17/19 09:22 Ondansetron HCl (Zofran) 4 mg IVP Q8HR PRN PRN Reason: Nausea And Vomiting Stop: 05/17/19 11:11 Rosuvastatin Calcium (Crestor) 40 mg PO HS [facility] Stop: 05/17/19 21:01 Last Admin: 11/15/18 21:22 Dose: 40 mg Ticagrelor (Brilinta) 90 mg PO BID [facility] Stop: 05/17/19 21:01 Last Admin: 11/16/18 08:34 Dose: 90 mg - Imaging and Cardiology Echo: report reviewed Cardiac cath: report reviewed - EKG Interpretation EKG results cardiology: other (12 hr tele AVG HR 64, SR, no significant pauses or arrhythmias noted.) Consult Discharge Plan - Plan Referrals: Hermilo Taylor DO [Primary Care Provider] -
[2018-11-16] MEDS ORDERED: Metoprolol XL (24 HR) Succ 25 MG TAB.ER.24H PO SCH (10:45)
[2018-11-16] MEDS ORDERED: Nitroglycerin 0.4 MG TAB.SUBL SL PRN (13:47)
[2018-11-16] MEDS ORDERED: *HR* Morphine 2 MG/ML SYRINGE IVP PRN (13:47)
[2018-11-16] MEDS ORDERED: Ondansetron 4 MG/2 ML VIAL IVP PRN (13:47)
[2018-11-17] MEDS ORDERED: *HR* Enoxaparin 40 MG/0.4 ML SYRINGE SQ SCH (06:00)
[2018-11-17] MEDS: *HR* Ticagrelor 90 MG TABLET PO SCH (08:26)
[2018-11-17 08:34] VITALS: BP 120/74
[2018-11-17] MEDS ORDERED: Loratadine 10 MG TABLET PO SCH (09:00)
[2018-11-17] MEDS ORDERED: Lisinopril-HCTZ 20-12.5mg TABLET PO SCH (09:00)
[2018-11-17] MEDS ORDERED: Aspirin 81 MG TAB.CHEW PO SCH (09:00)
[2018-11-17] MEDS ORDERED: Metoprolol XL (24 HR) Succ 25 MG TAB.ER.24H PO SCH (09:00)
--- NOTE | 2018-11-17 09:51 | Discharge Summary ---
Orders not resulted at time of discharge: Pending orders 11/15/18 11:10 ECG 12 lead ECG [ECG] Stat 11/17/18 08:39 BMP [Basic Metabolic Panel] Stat CBC [Complete Blood Count] [HEME] Stat Date of Encounter: 11/17/18 Time of Encounter: 09:48 - Discharge Diagnosis (1) STEMI (ST elevation myocardial infarction) Priority: Primary Status: Acute Qualifiers: Involved coronary artery: unspecified coronary artery Qualified Code(s): I21.3 - ST elevation (STEMI) myocardial infarction of unspecified site (2) CAD (coronary artery disease) Priority: Secondary Status: Acute Qualifiers: Coronary Disease-Associated Artery/Lesion type: beaver artery [place] vs. transplanted heart: beaver heart Associated angina: angina presence unspecified Qualified Code(s): I25.10 - Atherosclerotic heart disease of beaver coronary artery without angina pectoris (3) HTN (hypertension) Priority: Secondary Status: Chronic Qualifiers: Hypertension type: essential hypertension Qualified Code(s): I10 - Essential (primary) hypertension - Hospital Course Hospital course: Mr. Velazquez is a 63 year old male that presented 11/15/18 as inferior STEMI, taken urgently to micro lab analyst. [facility] with severe 1 vessel CAD. EF 50%. Successful PTCA/LIMA to dRCA--culprit for STEMI. Tortuous/severely stenotic right subclavian artery. Denies chest pain or dyspnea this AM. No events on tele. Labs and vitals stable. TTE EF 55%. Basal inferior wall hypokinetic. Mild LVDD. No phtn. DAPT (ASA and Brilinta) uninterrupted x 1 year. Pt verbalizes understanding. Continue Statin, ACEi, BB. Cardiac rehab ordered. Right femoral access site healing well. No bleeding or hematoma. Mild ecchymosis. Restrictions discussed. D/C home in stable condition. Will coordinate outpt follow-up in 1 week. Time spent discussing smoking cessation with patient: 3 to 10 minutes - Time Spent with Patient Total time spent providing and/or coordinating discharge services: - Discharge Medications Prescriptions: Nitroglycerin 0.4 mg SL Q5MIN PRN #30 tab.subl PRN Reason: Chest Pain Aspirin Enteric Coated [Aspirin EC] 81 mg PO DAILY #30 tablet. Lisinopril-HCTZ 20-12.5 [Prinzide 20-12.5] 1 tab PO DAILY #30 tablet Metoprolol XL (24 HR) Succ [Toprol Xl] 12.5 mg PO DAILY #15 tab.er.24h Rosuvastatin [Crestor] 40 mg PO HS #30 tablet Ticagrelor [Brilinta] 90 mg PO BID #60 tablet Home Medications: Ascorbate Calcium [Vitamin C] 500 mg PO DAILY 11/16/18 [History] Esomeprazole Magnesium [Heartburn Treatment] 20 mg PO DAILY 11/16/18 [History] [place]-3/Dha/Epa/Fish Oil [Cvs Fish Oil 1,000 mg Softgel] 1 each PO BID 11/16/18 [History] Vitamin B Complex [Balanced B-50] 1 each PO DAILY 11/16/18 [History] Vitamin E 400 unit PO DAILY 11/16/18 [History] Aspirin Enteric Coated [Aspirin EC] 81 mg PO DAILY #30 tablet. 11/17/18 [Rx] Lisinopril-HCTZ 20-12.5 [Prinzide 20-12.5] 1 tab PO DAILY #30 tablet 11/17/18 [Rx] Metoprolol XL (24 HR) Succ [Toprol Xl] 12.5 mg PO DAILY #15 tab.er.24h 11/17/18 [Rx] Nitroglycerin 0.4 mg SL Q5MIN PRN #30 tab.subl 11/17/18 [Rx] Rosuvastatin [Crestor] 40 mg PO HS #30 tablet 11/17/18 [Rx] Ticagrelor [Brilinta] 90 mg PO BID #60 tablet 11/17/18 [Rx] Allergies/Adverse Reactions: Allergy/AdvReac Type Severity Reaction Status Date / Time No Known Allergies Allergy Verified 11/16/18 12:01 Date of admission: 11/15/18 10:16 Primary care physician: Hermilo Taylor Consults: 11/15/18 11:10 Consult to Cardiac Rehabilitation-Phase1 [CONS] Routine Comment: Reason for Consult: AMI Call Completed: Yes Consult to Nurse Navigator [CONS] Routine Comment: Discharging clinician: Gerson Swenson Anticipated date of discharge: 11/17/18 Physical Examination Vital Signs, Last 4 Hours Temp Pulse Resp BP Pulse Ox 11/17/18 08:31 97.8 F 11/17/18 08:00 63 16 120/74 98 11/17/18 07:00 63 Vital Signs Temp Pulse Resp BP Pulse Ox 11/17/18 08:31 97.8 F 11/17/18 08:00 63 16 120/74 98 11/17/18 07:00 63 11/17/18 04:00 97.9 F 55 14 126/82 100 11/17/18 03:28 58 11/17/18 00:00 98.9 F 59 18 113/71 94 11/16/18 23:30 59 11/16/18 20:29 98.9 F 11/16/18 20:10 74 11/16/18 20:00 74 16 105/66 96 11/16/18 18:00 71 16 106/69 96 11/16/18 16:00 67 16 115/70 97 11/16/18 15:47 98.2 F 11/16/18 15:00 85 11/16/18 14:00 86 16 135/96 95 11/16/18 13:00 60 16 131/84 95 11/16/18 12:00 97.8 F 60 16 111/76 98 11/16/18 11:00 60 Intake and Output 11/16/18 11/17/18 11/17/18 23:59 07:59 15:59 Intake Total 480 / 480 Output Total 600 / 600 600 / 600 Balance -600 / -600 -120 / -120 Intake: Oral 480 / 480 Output: Urine 600 / 600 600 / 600 Other: Meal Breakfast Percent of Meal Consumed 100% Weight 102.6 kg Patient Weight 11/17/18 23:59 Weight 102.6 kg General: Conversant, No Apparent Distress HEENT: Atraumatic, Normocephaly, Mucus Membranes Moist Neck: No JVD, Normal carotid pulses Cardiac: Reg Rate and Rhythm, Normal S1 and S2, No Murmur Lungs: Normal Breath Sounds, No Wheeze, Rales, Rhonchi Neuro: Alert and responsive, No focal deficits noted Abdomen: Soft, Non-Tender Skin: Other (right femoral access site healing well. No bleeding or hematoma. Mild ecchymosis.) Musculoskeletal: No Chest Wall Tenderness Extremities: No Clubbing, No Cyanosis, No Edema, Normal Pulses - Patient Status Disposition: Home, Self-Care Condition: Fair Functional capacity at discharge: independent ambulation Overall status at discharge: patient is progressing back to baseline - Discharge Instructions Follow Up With: Gerson Swenson CNP [Advanced Practice Nurse] - (Office will call patient with appointment date/time.) Hermilo Taylor DO [Primary Care Provider] - (Office will call patient with appointment date/time.) Additional Instructions: RISK FACTORS: STOP SMOKING: If you smoke, STOP. Smoking or tobacco use significantly increases your risk of heart disease because nicotine causes the arteries to narrow or constrict. It also causes fats to stick to the artery. Your chances of having a heart attack are greatly increased if you continue to smoke. For more information, call the education line for smoking cessation 6-918-WHAXDXY EAT A LOW FAT/CHOLESTEROL/SODIUM DIET: This diet may help reduce your chances of having a heart attack. LIFTING: Avoid lifting anything more than 10 pounds for 5-7 days Prior to straining, laughing, sneezing and/or coughing, apply manual pressure directly over insertion site. ACTIVITY: You may walk or climb stairs as tolerated You can resume sexual activity as tolerated In general, you are encouraged to engage in a minimum of 30 minutes or more of moderate intensity physical activity, such as brisk walking, daily or at least 3-4 times weekly BATHING Do not submerge the site into water (bath tub, hot tub, swimming pool) for 1 week. This can be a source for infection into the blood stream. You may shower after 24 hours SITE CARE: After 24 hours, you may remove the dressing and leave the site open to air. Keep the site clean and dry. Clean gently and pat dry. You can expect bruising and tenderness that gradually resolve within a week or two. Return to work as instructed per your physician Resume driving as instructed per physician Keep all scheduled follow up appointments Resume medications as instructed IMPORTANT: If prescribed a Platelet Aggregation Inhibitor such as, Plavix, Brili nta or Effient: Duration of therapy is minimum one year These medications are often used in combination with Aspirin in prevention of future heart attacks Never discontinue unless consult with your Steam Gigger STROKE (CVA) Risk factors for a stroke are: Age, cigarette smoking, diabetes, excessive alcohol consumption, family history, high blood pressure, overweight, physical inactivity, prior stroke, heart attack, diagnosis of carotid artery stenosis or other artery disease. Warning signs: Sudden numbness or weakness of the face, arm or leg; especially on one side of the body, sudden confusion, trouble speaking or understanding, sudden trouble seeing in one or both eyes, sudden trouble walking, dizziness, loss of balance or coordination, sudden severe headache with no cause. Call 911 or go to the Emergency Room. CONGESTIVE HEART FAILURE: If you have been diagnosed with Congestive Heart Failure (CHF) and your symptoms return, make an appointment with your physician Weigh yourself daily. Notify your physician if you have a weight gain of two or more pounds in one day or five or more pounds in one week. If you experience any difficulty breathing, please call 911 BLEEDING: Although the risk of bleeding is minimal, it can happen. If you have any bleeding from the site, apply firm pressure above the puncture site for 10-15 minutes. If the bleeding does not stop, continue manual pressure and call 911 Contact your physician if: You develop a fever greater than 101 degrees Fahrenheit Your site becomes reddened or has any drainage You have an increase in pain or burning at the site or if a large knot forms at the site. If you experience chest pain, shortness of breath, dizziness, or extreme tiredness, stop the activity and rest. Please notify your physicians office if you experience any of these symptoms and they are not relieved by rest please call 911! - Diet and Activity Activity: increase activity as tolerated Diet: low fat, low cholesterol
[2018-11-17 10:04] LABS: Basophils % 0.4 %; Eosinophils # 0.2 K/mcL (0.0-0.6); Hematocrit 37.7 % (37.5-50.1); Hemoglobin 12.4 g/dL (12.9-16.9); Immature Granulocytes % 0.2 % (0-4); Lymphocytes # 1.4 K/mcL (0.6-4.6); Lymphocytes % 25.4 %; Mean Corpuscular HGB Conc 32.9 g/dL (31.6-35.5); Mean Corpuscular Hemoglobin 30.8 pg (28.0-33.3); Mean Corpuscular Volume 93.5 fL (83.0-100.0); Mean Platelet Volume 9.8 fL (9.4-12.4); Monocytes # 0.7 K/mcL (0.0-1.3); Monocytes % 12.5 %; Neutrophils # 3.1 K/mcL (1.6-8.9); Platelet Count 155 K/mcL (140-400); Red Blood Count 4.03 M/mcL (4.19-5.50); Red Cell Distribution Width 13.2 % (11.5-14.5); Segmented Neutrophils % 58.5 %
[2018-11-17 10:21] LABS: BUN/Creatinine Ratio 21 (6-26); Blood Urea Nitrogen 18 mg/dL (8-23); Calcium 9.3 mg/dL (8.6-10.3); Carbon Dioxide 28 mEq/L (23-29); Chloride 105 mEq/L (98-107); Glucose 106 mg/dL (70-105); Osmolality,Calculated 288 (280-300); Potassium 3.6 mEq/L (3.5-5.1); Sodium 138 mEq/L (136-145); eGFR For Non-African Americans > 60 (> 60)
--- NOTE | 2018-11-17 23:38 | Electrocardiograph Report ---
[address] [place] [address] Test Date: 2018-11-17 Pat Name: Chito Velazquez Department: 109 Room: 03 Gender: M Clinical Courier: GIORGIO : 1955 Requested By: Gerson Swenson Order Number: [id number] Reading MD: Nikki Stephen Measurements Intervals Flanagan Rate: 59 P: 19 VT: 157 QRS: -36 QRSD: 88 T: -66 QT: 444 QTc: 444 Interpretive Statements SINUS BRADYCARDIA INFERIOR MYOCARDIAL INFARCTION, OF INDETERMINATE AGE ANTEROLATERAL MYOCARDIAL INFARCTION, OF INDETERMINATE AGE Electronically Signed On 11-17-2018 23:37:15 EST by Nikki Stephen
== END 2018-11-17 11:45 | disposition home or self-care (01) | DRG 282 ==
LOC: EMEROOARM 08:48 → ICNU 10:16
PROVIDERS: ADMIT Emergency Medicine; ATTEND Emergency Medicine